=== PATIENT | male | born 2000 | race Caucasian/White ===

== ENCOUNTER 2019-03-04 15:07 | Inpatient (IN) | payer SELFPAY ==
[2019-03-04] MEDS ORDERED: Ketorolac Tromethamine 30 MG/ML VIAL ONE (15:36)
[2019-03-04] MEDS ORDERED: Acetaminophen 500 MG TAB ONE (15:36)
[2019-03-04] MEDS ORDERED: Clindamycin/D5W 900 mg/50 ml Premix Bag ONE (15:36)
[2019-03-04] MEDS ORDERED: Vancomycin HCl 1.5 GM in Sodium Chloride 0.9% 250 ML 300 ML IVPB ONE (15:45)
[2019-03-04 16:06] LABS: ALT (SGPT) 13 U/L (8-55); AST (SGOT) 20 U/L (5-34); Albumin 3.6 g/dL (3.5-5.0); Alkaline Phosphatase 78 U/L (40-110); Anion Gap 14 mmol/L (10-20); BUN (Urea Nitrogen) 13 mg/dL (8.9-20.6); Bilirubin, Total 0.4 mg/dL (0.2-1.2); CRP (Inflammatory) 17.86 mg/dL (= or < 0.5); Calc. Creatinine Clearance 0 mL/min (70-130); Calcium 9.2 mg/dL (7.8-10.44); Carbon Dioxide 23 mmol/L (22-29); Chloride 99 mmol/L (98-107); Estimated GFR-MDRD Greater than 90; Glucose 121 mg/dL (70-105); Potassium 4.1 mmol/L (3.5-5.1); Protein, Total 7.6 g/dL (6.0-8.3); Sodium 132 mmol/L (136-145)
[2019-03-04] MEDS ORDERED: Piperacillin/Tazobactam 4.5 GM VIAL ONE (16:09)
[2019-03-04] MEDS ORDERED: Sodium Chloride 0.9% 100 ML ONE (16:09)
--- NOTE | 2019-03-04 16:20 | ULT ---
EXAM: Right lower extremity venous ultrasound HISTORY: Right lower extremity pain for 4 days COMPARISON: None TECHNIQUE: Multiplanar grayscale and color Doppler images were obtained in a right lower extremity ve nous ultrasound. Spectral analysis of the Doppler waveforms were performed. FINDINGS: The common femoral vein, profunda femoral vein, superficial femoral vein, and popliteal vei n are normal in appearance without visible thrombus. These vessels demonstrate normal compression, flow, and augmentation. The posterior tibial vein and greater saphenous vein are patent without evidence of thrombus. There is a fluid collection in the soft tissues surrounding the knee. IMPRESSION: No evidence of DVT.
--- NOTE | 2019-03-04 17:20 | RAD ---
RIGHT TIBIA AND FIBULAR TWO VIEWS: 03/04/19 HISTORY: Erythema. FINDINGS: No fracture. No cortical irregularity. No periosteal reaction. No radiopaque foreign body. Mild soft tissue swelling at the level of the ankle. IMPRESSION: Mild soft tissue swelling at the level of the ankle. No fracture. No radiopaque foreign body. POS: [facility]
[2019-03-04 17:23] LABS: #Eosinphils 0.1 thou/uL (0.0-0.7); #Monocytes 1.4 thou/uL (0.11-0.59); #Neutrophils 6.8 thou/uL (1.40-6.50); %Basophils 0.1 % (0.0-1.0); %Eosinophils 1.2 % (0.0-10.0); %Lymphocytes 19.5 % (21.0-51.0); %Monocytes 13.6 % (0.0-10.0); %Neutrophils 65.5 % (42.0-75.0); Hemoglobin 13.2 g/dL (14.0-18.0); Mean Corpuscular HGB CONC 33.8 g/dL (32.0-36.0); Mean Corpuscular Hemoglobin 30.2 pg (27.0-31.0); Mean Corpuscular Volume 89.5 fL (78.0-98.0); Mean Platelet Volume 6.2 fL (7.4-10.4); Platelet Count 463 thou/uL (130-400); Red Blood Cell (RBC) Count 4.38 mill/uL (4.70-6.10); White Blood Cell (WBC) Count 10.3 thou/uL (4.8-10.8)
[2019-03-04] MEDS ORDERED: Morphine 4 MG/ML VIAL ONE (17:23)
--- NOTE | 2019-03-04 17:27 | RAD ---
RIGHT FEMUR TWO VIEWS: 03/04/19 HISTORY: Pain. Erythema. FINDINGS: No fracture. No cortical irregularity or periosteal reaction. In the proximal mid-thigh soft tissues, there is a hyperdense lesion which may represent a partially calcified focus in the soft tissues. This lesion measures approximately 0.5 cm. IMPRESSION: Possible soft tissue calcification. No fracture, cortical irregularity or periosteal reaction. POS: [facility]
[2019-03-04] MEDS ORDERED: HYDROcodone/Acetaminophen 5/325 mg Tablet PO PRN (18:03)
[2019-03-04] MEDS ORDERED: Senokot S 8.6-50 MG TAB PO PRN (18:03)
[2019-03-04] MEDS ORDERED: Acetaminophen 325 MG TAB PO PRN (18:03)
[2019-03-04 19:44] VITALS: BMI 26.6
[2019-03-04] MEDS: Sodium Chloride 0.9% 1,000 ML IV SCH (19:47)
[2019-03-04] MEDS: Famotidine 20 MG TAB PO SCH (19:48)
[2019-03-04] MEDS: HYDROcodone/Acetaminophen 5/325 mg Tablet PO PRN (19:49)
[2019-03-04] MEDS: Nicotine 14 MG PATCH TD SCH (19:50)
[2019-03-05] MEDS: Piperacillin/Tazobactam 4.5 GM in Sodium Chloride 0.9% 100 ML IVPB SCH ×4 (00:13→16:10)
--- NOTE | 2019-03-05 00:37 | HP ---
This is ISSA Dove dictating a report for Lane Fraser MD. CHIEF COMPLAINT: Redness to right lower leg. HISTORY OF PRESENT ILLNESS: Mr. Ventura is a 19-year-old male, who presented to the emergency room today, complaining of redness and pain to the right leg x4 days. Patient reports injecting methamphetamines in his arm and leg, but denies injecting it near the area of current redness. He denies any cough, congestion, sore throat, or diarrhea. Denies any history of hepatitis, HIV, or blood clot. Does report that he has had intermittent fevers for the last several days. Reports chills. Reports that his dad has had a blood clot and had to get his leg amputated. Patient denies sharing needles with any other people. Reports that his last injection was several days ago. Patient reports that pain is primarily behind his right knee and is somewhat tender there. Otherwise, he denies having a spot of redness that got bigger. He said he just woke up one morning several days ago and his leg was red and tender. In the emergency room, x-ray of femur, 2-views, were negative for any fracture. Right tibia and fibular, 2-views, mild soft tissue swelling at the level of the ankle. No fracture. No radiopaque foreign body. White blood cell count is 10.3. CRP 17.86. Sodium 132, glucose 121. CK is 38. Lactic acid 1.7. Patient also had a Doppler of the right leg, which was negative for any DVT. There is a fluid collection noted in the soft tissues surrounding the knee. Patient was given vanc, Zosyn, clindamycin, morphine, Toradol, Tylenol, and 2 L of fluid. The patient is denying any increased pain. Reports that his pain is well controlled at the moment. He will be admitted to medical floor for further management. REVIEW OF SYSTEMS: Patient reports chills, reports fever. Denies any chest pain, palpitations, shortness of breath, or cough. Denies any abdominal pain, nausea, vomiting, or diarrhea. Reports redness and pain, swelling to the right lower leg. All other systems are reviewed and are negative unless mentioned in the HPI. PHYSICAL EXAMINATION: VITAL SIGNS: Blood pressure 113/67, pulse is 98, respirations are 20, temperature is 97.9, and pO2 sats are 94% on room air. CONSTITUTIONAL: Patient appears nontoxic. He is alert and oriented to person, place, and time. He is in no apparent distress. HEENT: Head is atraumatic and normocephalic. Eyes, pupils are equal, round, and reactive to light. Extraocular muscles are intact. ENT; mouth exam is normal. Mucous membranes are moist. NECK: Normal range of motion. Trachea is midline. RESPIRATORY/CHEST: Breath sounds are clear. Chest movement is symmetrical. CARDIOVASCULAR: Patient is mildly tachycardic. Heart sounds are normal. ABDOMEN: Nontender. BACK: Normal inspection. Normal range of motion. No CVA tenderness. EXTREMITIES: Upper extremity, normal range of motion. Radial pulses are equal. Lower extremity, normal range of motion, normal strength. There is erythema and warmth to the skin overlying medial and anterior right calf. There is swelling and tenderness to right calf, tenderness to popliteal area. Range of motion is somewhat limited due to pain. NEUROLOGIC: Patient is oriented to person, place, and time. Speech is normal. There is no focal motor or sensory deficits. SKIN: Dry, warm, right lower leg cellulitic as described above. There are multiple puncture madison to right arm and leg noted. PSYCH: Patient is oriented to person, place, and time. Normal affect. PAST MEDICAL HISTORY: None. PAST SURGICAL HISTORY: Had a tonsillectomy. PSYCH HISTORY: ADHD, anxiety, and bipolar. SOCIAL HISTORY: Denies alcohol use, but currently uses methamphetamines, injects and also injects methamphetamines. Also, smokes about half a pack of cigarette a day. FAMILY HISTORY: Dad with a blood clot that required amputation. PLAN/ASSESSMENT: 1. Right lower leg cellulitis. We will continue the and vanc. We will ask pharmacy for assistance with dosing of the vancomycin. IV hydration with normal saline at 125 mL per hour. Area of cellulitis has been outlined in the ER. We will keep an eye on this. We will elevate limb. Recheck labs in the morning. 2. Deep venous thrombosis and gastrointestinal prophylaxis have been started. 3. Case discussed with Dr. Fraser, who agrees with the plan. 4. Hospital course depending on clinical findings. Job ID: [id number]
[2019-03-05] MEDS: Vancomycin HCl 1.5 GM in Sodium Chloride 0.9% 250 ML 300 ML IVPB SCH ×3 (01:44→17:35)
[2019-03-05] MEDS: Sodium Chloride 0.9% 1,000 ML IV SCH ×3 (05:39→18:34)
[2019-03-05 07:01] LABS: #Eosinphils 0.2 thou/uL (0.0-0.7); #Lymphocytes 2.1 thou/uL (1.20-3.40); #Monocytes 1.2 thou/uL (0.11-0.59); #Neutrophils 5.2 thou/uL (1.40-6.50); %Basophils 0.2 % (0.0-1.0); %Eosinophils 2.1 % (0.0-10.0); %Lymphocytes 24.4 % (21.0-51.0); %Monocytes 13.7 % (0.0-10.0); %Neutrophils 59.6 % (42.0-75.0); Hemoglobin 12.9 g/dL (14.0-18.0); Mean Corpuscular HGB CONC 33.8 g/dL (32.0-36.0); Mean Corpuscular Hemoglobin 30.6 pg (27.0-31.0); Mean Corpuscular Volume 90.6 fL (78.0-98.0); Mean Platelet Volume 6.1 fL (7.4-10.4); Platelet Count 430 thou/uL (130-400); RBC Distribution Width 11.1 % (11.5-14.5); White Blood Cell (WBC) Count 8.7 thou/uL (4.8-10.8)
[2019-03-05 07:18] LABS: Anion Gap 12 mmol/L (10-20); BUN (Urea Nitrogen) 13 mg/dL (8.9-20.6); Calc. Creatinine Clearance 198 mL/min (70-130); Calcium 8.5 mg/dL (7.8-10.44); Carbon Dioxide 21 mmol/L (22-29); Chloride 105 mmol/L (98-107); Estimated GFR-MDRD Greater than 90; Glucose 106 mg/dL (70-105); Sodium 134 mmol/L (136-145)
[2019-03-05] MEDS: Famotidine 20 MG TAB PO SCH ×2 (08:48→20:25)
[2019-03-05] MEDS: Enoxaparin Sodium 40 MG/0.4 ML SYRINGE SC SCH (08:49)
[2019-03-05] MEDS: HYDROcodone/Acetaminophen 5/325 mg Tablet PO PRN ×2 (08:57→16:10)
--- NOTE | 2019-03-05 12:27 | PDOC.HOSPP ---
- Subjective Encounter Date: 03/05/19 Encounter Time: 07:20 Subjective: Pt seen for [id number] re: cellulitis. Feels better. - Objective Vital Signs & Weight: Vital Signs (12 hours) Temp Pulse Resp BP Pulse Ox 03/05/19 11:56 98.1 F 95 20 126/80 97 03/05/19 11:50 98.1 F 95 20 126/80 97 03/05/19 08:00 98 03/05/19 07:25 98.1 F 85 18 123/79 98 03/05/19 04:00 97.8 F 94 18 109/68 98 Weight Weight 180 lb I&O: 03/04/19 03/05/19 03/06/19 06:59 06:59 06:59 Intake Total 2094 Balance 2094 Result Diagrams: 03/05/19 06:12 03/05/19 06:12 Additional Labs: Labs and MARs reviewed by me Hospitalist ROS - Review of Systems Cardiovascular: denies: chest pain, palpitations, orthopnea, paroxysmal noc. dyspnea, edema, light headedness Gastrointestinal: denies: nausea, vomiting, abdominal pain, diarrhea, constipation, melena, hematochezia Skin: reports: rash - Medication Medications: Active Medications Generic Name Dose Route Start Last Admin Trade Name Freq PRN Reason Stop Dose Admin Hydrocodone Bitart/Acetaminophen 1 tab 03/04/19 18:03 03/05/19 08:57 [place] 5/325 PO 1 tab Q4H PRN Administration Moderate Pain (4-6) Enoxaparin Sodium 40 mg 03/05/19 09:00 03/05/19 08:49 Lovenox SC Not Given 09 GAVIOTA Famotidine 20 mg 03/04/19 21:00 03/05/19 08:48 Pepcid PO 20 mg BID GAVIOTA Administration Sodium Chloride 1,000 mls @ 125 mls/hr 03/04/19 18:15 03/05/19 10:04 Normal Saline 0.9% IV Not Given .Q8H GAVIOTA Piperacillin Sod/Tazobactam 100 mls @ 200 mls/hr 03/04/19 23:59 03/05/19 11: 21 Sod 4.5 gm/ Sodium Chloride IVPB 100 mls Q6HR GAVIOTA Administration Vancomycin HCl 1.5 gm/ Sodium 300 mls @ 200 mls/hr 03/05/19 01:00 03/05/19 08 :51 Chloride IVPB 300 mls 0100,0900,1700 GAVIOTA Administration Nicotine 14 mg 03/04/19 20:00 03/04/19 19:50 Nicoderm Patch TD 14 mg Q24HR GAVIOTA Administration - Exam General Appearance: NAD Eye: anicteric sclera ENT: no oropharyngeal lesions Neck: supple, no JVD Heart: RRR Respiratory: CTAB Gastrointestinal: soft, non-tender Extremities: no edema Skin - other findings: RLE rash Musculoskeletal: no muscle wasting Psychiatric: normal affect, normal behavior
--- NOTE | 2019-03-05 12:30 | PDOC.HOSPP ---
- Subjective Encounter Date: 03/05/19 Encounter Time: 07:20 Subjective: Pt seen for followup re: cellulitis. feels better. No diarrhea. No nausea or vomiting. - Objective Vital Signs & Weight: Vital Signs (12 hours) Temp Pulse Resp BP Pulse Ox 03/05/19 11:56 98.1 F 95 20 126/80 97 03/05/19 11:50 98.1 F 95 20 126/80 97 03/05/19 08:00 98 03/05/19 07:25 98.1 F 85 18 123/79 98 03/05/19 04:00 97.8 F 94 18 109/68 98 Weight Weight 180 lb I&O: 03/04/19 03/05/19 03/06/19 06:59 06:59 06:59 Intake Total 2094 Balance 2094 Result Diagrams: 03/05/19 06:12 03/05/19 06:12 Additional Labs: Labs and MARs reviewed by nd Hospitalist ROS - Review of Systems Cardiovascular: denies: chest pain, palpitations, orthopnea, paroxysmal noc. dyspnea, edema, light headedness Gastrointestinal: denies: nausea, vomiting, abdominal pain, diarrhea, constipation, melena, hematochezia - Medication Medications: Active Medications Generic Name Dose Route Start Last Admin Trade Name Freq PRN Reason Stop Dose Admin Hydrocodone Bitart/Acetaminophen 1 tab 03/04/19 18:03 03/05/19 08:57 [place] 5/325 PO 1 tab Q4H PRN Administration Moderate Pain (4-6) Enoxaparin Sodium 40 mg 03/05/19 09:00 03/05/19 08:49 Lovenox SC Not Given 09 G[facility]OTA Famotidine 20 mg 03/04/19 21:00 03/05/19 08:48 Pepcid PO 20 mg BID G[facility]OTA Administration Sodium Chloride 1,000 mls @ 125 mls/hr 03/04/19 18:15 03/05/19 10:04 Normal Saline 0.9% IV Not Given .Q8H [facility] Piperacillin Sod/Tazobactam 100 mls @ 200 mls/hr 03/04/19 23:59 03/05/19 11: 21 Sod 4.5 gm/ Sodium Chloride IVPB 100 mls Q6HR G[facility] Administration Vancomycin HCl 1.5 gm/ Sodium 300 mls @ 200 mls/hr 03/05/19 01:00 03/05/19 08 :51 Chloride IVPB 300 mls 0100,0900,1700 G[facility] Administration Nicotine 14 mg 03/04/19 20:00 03/04/19 19:50 Nicoderm Patch TD 14 mg Q24HR G[facility]IOTA Administration - Exam General Appearance: NAD Eye: anicteric sclera ENT: moist mucosa Neck: supple, no JVD Heart: RRR, no rubs Respiratory: CTAB Gastrointestinal: soft, non-tender Extremities: no cyanosis Skin - other findings: right leg cellulitis improving Musculoskeletal: normal strength Psychiatric: normal affect, normal behavior Hosp A/P (1) Cellulitis Code(s): L03.90 - CELLULITIS, UNSPECIFIED Status: Acute (2) Hyponatremia Code(s): E87.1 - HYPO-OSMOLALITY AND HYPONATREMIA Status: Acute (3) Methamphetamine use Code(s): F15.10 - OTHER STIMULANT ABUSE, UNCOMPLICATED Status: Chronic - Plan continue antibiotics, out of bed/ambulate Continue IV Zosyn and vancomycin. Consult ID Stop methamphetamine use. Hyponatremia mild, likely asymptomatic.
--- NOTE | 2019-03-05 14:35 | CON ---
DATE OF CONSULTATION: 03/05/2019 REASON FOR CONSULTATION: Area of cellulitis, right leg in the setting of methamphetamine intravenous drug use. HISTORY OF PRESENT ILLNESS: A 19-year-old with history of methamphetamine drug use including intravenous, bipolar disorder, and chronic smoking, who lives in the area in an apartment and has been using methamphetamine in the vein, trying his arms and legs and developed redness below the knee area. The patient has limitation of range of motion of the right knee with pain and then he came to the emergency room and was admitted. No headaches, visual symptoms, sore throat, odynophagia, or dysphagia. No vomiting. No back pain. No dyspnea or chest pain. No abdominal pain or diarrhea. No genitourinary symptoms. No other joint symptoms. MEDICAL HISTORY: Methamphetamine drug use with intravenous drug use as well and chronic smoking. He lives in the area with family reportedly. FAMILY HISTORY: DVT. ALLERGIES: NONE. CURRENT MEDICATIONS: 1. Zosyn. 2. Vancomycin. 3. Enoxaparin. 4. Hydrocodone. 5. Pepcid. PHYSICAL EXAMINATION: VITAL SIGNS: T-max 98.1, blood pressure 120/80, pulse 95, respirations 20, and O2 saturation 97%. SKIN: There is faint area of erythema in the right calf region wrapping around right below the knee towards the distal 2/3 of the right leg. No areas of discoloration. No needle track madison noted. HEENT: No lymphadenopathy. Ocular movements conjugate. Pupils are equal. Nasal passage is patent. Ear exam normal. Oral cavity normal. NECK: Supple. No jugular vein distention or carotid bruits. No thyromegaly. LUNGS: Symmetric air entry. HEART: S1 and S2 without murmurs. No S3 or S4. ABDOMEN: Soft, not distended or tender. No ascites. No bladder distention. MUSCULOSKELETAL: The patient has limitation in range of motion of the right knee, the left is normal. I did not identify obvious right knee effusion in the exam. Pulses are 2+ in dorsalis pedis. Strength appears to be preserved with limitations imposed by the inflammatory process of right lower extremity. NEUROLOGIC: He avoids eye contact, a little bit fidgety. He seems to be oriented. Replies are short and mostly yes and no. LABORATORY DATA: White cell count 10.3 and 8.7, hemoglobin 13.2, platelets 463 and 430, 65% neutrophils, 19% lymphocytes. Creatinine 0.81. Liver profile normal. CRP 17.86, albumin 3.6. Two sets of blood cultures thus far no growth. Tibia-fibula x-ray, mild soft tissue swelling at the ankle. Vascular ultrasound with no evidence of deep vein thrombosis. There was a femur x-ray with possible calcification in soft tissue. ASSESSMENT: 1. Methamphetamine intravenous drug use reportedly with sterile needles, most recent one used four days before admission. 2. Inflammatory process, right lower extremity with the epicenter around the right knee and the calf region. It seems to have improved quite a bit since admission on broad-spectrum antimicrobial therapy. DISCUSSION: The differential diagnosis includes septic arthritis, infrapatellar bursitis, or cellulitis and the possibility of an abscess formation. We will continue antimicrobial therapy. Follow up clinical course. May need MRI of the leg and the knee to clarify the anatomic structures involved. Check hepatitis C and HIV serology as well as RPR and hepatitis B serology. Job ID: [id number]
[2019-03-05] MEDS ORDERED: traMADol HCl 50 MG TAB PO PRN ×2 (16:51)
[2019-03-05] MEDS ORDERED: Acetaminophen/Codeine 30-300mg Tablet PO PRN (16:51)
[2019-03-05] MEDS ORDERED: Ketorolac Tromethamine 30 MG/ML VIAL IVP PRN (16:52)
[2019-03-05] MEDS ORDERED: Ketorolac Tromethamine 30 MG/ML VIAL IVP SCH (17:00)
[2019-03-05 18:24] LABS: Syphilis Antibody Nonreactive (Nonreactive); Syphilis Antibody Index 0.05 S/CO (<1.00 Non-Reactive)
[2019-03-05 18:25] LABS: HIV (1/2) Antibody/Antigen Non-Reactive (NonReactive); HIV 1/2 INDEX 0.51 S/CO (<1.00); Hep C IgG Ab Non-Reactive (NonReactive); Hep C Index 0.07 S/CO (0-0.79)
[2019-03-05 18:28] LABS: HBSAB Concentration 14.22 mIU/mL; Hep B Surf AB Reactive (NonReactive)
[2019-03-05 19:29] LABS: HBSAg Index 0.12 S/CO (0-0.99); Hep B Surf Ag NonReactive S/CO (NonReactive)
[2019-03-05] MEDS: Nicotine 14 MG PATCH TD SCH (20:25)
[2019-03-06] MEDS: Piperacillin/Tazobactam 4.5 GM in Sodium Chloride 0.9% 100 ML IVPB SCH ×5 (00:04→23:38)
[2019-03-06] MEDS: Sodium Chloride 0.9% 1,000 ML IV SCH ×3 (00:05→18:36)
[2019-03-06] MEDS: Vancomycin HCl 1.5 GM in Sodium Chloride 0.9% 250 ML 300 ML IVPB SCH ×3 (01:07→17:47)
[2019-03-06 05:17] LABS: #Eosinphils 0.2 thou/uL (0.0-0.7); #Lymphocytes 2.2 thou/uL (1.20-3.40); #Monocytes 1.3 thou/uL (0.11-0.59); #Neutrophils 5.3 thou/uL (1.40-6.50); %Basophils 0.5 % (0.0-1.0); %Lymphocytes 24.3 % (21.0-51.0); %Monocytes 14.3 % (0.0-10.0); %Neutrophils 58.9 % (42.0-75.0); Hemoglobin 13.1 g/dL (14.0-18.0); Mean Corpuscular Hemoglobin 30.6 pg (27.0-31.0); Mean Corpuscular Volume 89.9 fL (78.0-98.0); Platelet Count 476 thou/uL (130-400); RBC Distribution Width 10.9 % (11.5-14.5); Red Blood Cell (RBC) Count 4.27 mill/uL (4.70-6.10)
[2019-03-06 05:43] LABS: Anion Gap 14 mmol/L (10-20); BUN (Urea Nitrogen) 8 mg/dL (8.9-20.6); Calc. Creatinine Clearance 190 mL/min (70-130); Calcium 8.8 mg/dL (7.8-10.44); Carbon Dioxide 20 mmol/L (22-29); Chloride 103 mmol/L (98-107); Estimated GFR-MDRD Greater than 90; Glucose 90 mg/dL (70-105); Potassium 4.2 mmol/L (3.5-5.1); Sodium 133 mmol/L (136-145)
[2019-03-06 05:51] LABS: Vancomycin, Trough 44.7 ug/mL
[2019-03-06 08:24] LABS: Vancomycin, Trough 21.5 ug/mL
[2019-03-06] MEDS: Enoxaparin Sodium 40 MG/0.4 ML SYRINGE SC SCH (08:43)
[2019-03-06] MEDS: Famotidine 20 MG TAB PO SCH ×2 (12:21→20:21)
[2019-03-06] MEDS: Acetaminophen/Codeine 30-300mg Tablet PO PRN ×2 (12:55→20:23)
--- NOTE | 2019-03-06 16:25 | PDOC.HOSPP ---
- Subjective Encounter Date: 03/06/19 Encounter Time: 12:00 Subjective: Pt seen for followup re: cellulitis. Denies any complaints. Feels better, wants to go home. - Objective Vital Signs & Weight: Vital Signs (12 hours) Temp Pulse Resp BP Pulse Ox 03/06/19 08:00 95 03/06/19 07:43 98.4 F 103 H 16 100/56 L 95 Weight Weight 180 lb I&O: 03/05/19 03/06/19 03/07/19 06:59 06:59 06:59 Intake Total 2094 Balance 2094 Result Diagrams: 03/06/19 04:55 03/06/19 04:55 Additional Labs: Labs and MARs reviewed by oh Hospitalist ROS - Review of Systems Constitutional: denies: fever, chills, sweats, weakness, malaise Cardiovascular: denies: chest pain, palpitations, orthopnea, paroxysmal noc. dyspnea, edema, light headedness Skin: reports: rash - Medication Medications: Active Medications Generic Name Dose Route Start Last Admin Trade Name Freq PRN Reason Stop Dose Admin Acetaminophen/Codeine Phosphate 2 tab 03/05/19 16:51 03/06/19 12:55 Tylenol #3 PO 2 tab Q6H PRN Administration MODERATE TO SEVERE Pain Enoxaparin Sodium 40 mg 03/05/19 09:00 03/06/19 08:43 Lovenox SC Not Given 0900 G[facility] Famotidine 20 mg 03/04/19 21:00 03/06/19 12:21 Pepcid PO Not Given BID [facility] Sodium Chloride 1,000 mls @ 125 mls/hr 03/04/19 18:15 03/06/19 12:57 Normal Saline 0.9% IV 1,000 mls .Q8H [facility] Administration Piperacillin Sod/Tazobactam 100 mls @ 200 mls/hr 03/04/19 23:59 03/06/19 15: 41 Sod 4.5 gm/ Sodium Chloride IVPB 100 mls Q6HR [facility] Administration Vancomycin HCl 1.5 gm/ Sodium 300 mls @ 200 mls/hr 03/05/19 01:00 03/06/19 09 :32 Chloride IVPB 300 mls 0100,0900,1700 G[facility] Administration Nicotine 14 mg 03/04/19 20:00 03/05/19 20:25 Nicoderm Patch TD Not Given Q24HR G[facility]OTA Tramadol HCl 100 mg 03/05/19 16:51 03/06/19 15:41 Ultram PO 100 mg Q6H PRN Administration SEVERE Pain (8-10) - Exam General Appearance: NAD Eye: anicteric sclera ENT: normocephalic atraumatic, moist mucosa Neck: supple, symmetric Heart: RRR, no rubs Respiratory: CTAB Gastrointestinal: soft, non-tender Extremities: no clubbing Skin - other findings: cellulitis improving; tattoos Musculoskeletal - other findings: Flexion at right knee up to 90 degrees only Psychiatric: normal affect, normal behavior Hosp A/P (1) Cellulitis Code(s): L03.90 - CELLULITIS, UNSPECIFIED Status: Acute (2) Hyponatremia Code(s): E87.1 - HYPO-OSMOLALITY AND HYPONATREMIA Status: Acute (3) Methamphetamine use Code(s): F15.10 - OTHER STIMULANT ABUSE, UNCOMPLICATED Status: Chronic - Plan plan discussed w/ family, continue antibiotics, out of bed/ambulate Continue IV Zosyn and vancomycin. Check MRI right knee and leg to rule out infection. Discussed with radiology, thry recommended MRI W and WO contrast. Pt counseled re: methamphetamine use. Hyponatremia mild.
[2019-03-06] MEDS: Nicotine 14 MG PATCH TD SCH (19:22)
[2019-03-07] MEDS: Vancomycin HCl 1.5 GM in Sodium Chloride 0.9% 250 ML 300 ML IVPB SCH ×2 (01:57→10:06)
[2019-03-07] MEDS: Piperacillin/Tazobactam 4.5 GM in Sodium Chloride 0.9% 100 ML IVPB SCH (05:41)
[2019-03-07] MEDS: Acetaminophen/Codeine 30-300mg Tablet PO PRN (09:05)
[2019-03-07] MEDS: Famotidine 20 MG TAB PO SCH (09:07)
[2019-03-07] MEDS: Enoxaparin Sodium 40 MG/0.4 ML SYRINGE SC SCH (09:07)
[2019-03-07 09:36] LABS: Vancomycin, Trough 16.1 ug/mL
[2019-03-07 12:59] VITALS: BP 112/73; TEMP 97.5
--- NOTE | 2019-03-07 17:25 | DIS ---
DATE OF ADMISSION: 03/04/2019 DATE OF DISCHARGE: 03/07/2019 DISCHARGE DISPOSITION: Home. PRIMARY DISCHARGE DIAGNOSES: 1. Right lower extremity cellulitis. 2. IV drug abuse with methamphetamine. 3. History of bipolar disorder. 4. Tobacco abuse. PROCEDURES DONE DURING HOSPITALIZATION: Right tib-fib, two view x-ray done showed soft-tissue swelling at the level of the ankle. No fracture. No radiopaque foreign body was seen. Right lower extremity venous ultrasound done showed no evidence of DVT. Right femur two-view x-ray done showed possible soft tissue calcification in the proximal mid thigh soft tissues. No fracture or cortical irregularity or periosteal reaction was seen. Blood cultures x2, no growth; had a white count of 10 with H and H of 13 and 39 on the day of admission with platelet count of 463 and 65% neutrophils. Discharge BUN and creatinine 8 and 0.7. CRP was 17.8. Albumin 3.6. Liver enzymes are within normal limits on the day of admission. Syphilis IgG/ IgM antibodies were nonreactive. Hepatitis B surface antigen nonreactive. Hep C antibody nonreactive. HIV 1 and 2 antigen and antibody nonreactive. INPATIENT CONSULT: Dr. Leach for Infectious Disease. DISCHARGE PLAN: The patient to follow up with primary care physician of his choice in 1 week DISCHARGE MEDICATIONS: Keflex 500 mg p.o. 4 times daily for 10 days, Motrin 400 mg three times daily p.r.n. for pain. ALLERGIES: NO KNOWN DRUG ALLERGIES. BRIEF COURSE DURING HOSPITALIZATION: The patient initially came in with complaints of right lower leg redness and swelling. He admitted to using IV methamphetamine in the area. He was essentially admitted for right lower leg cellulitis and was placed on broad-spectrum IV antibiotics due to IV drug abuse. He has had consultation with Dr. Leach as well. The patient has had multiple imaging studies, which has not revealed any signs of osteomyelitis or abscess. He remained hemodynamically stable all through his stay here. He is wanting to go home from last 24 hours. In view of this, he has been placed on Keflex 500 mg 4 times daily, to be continued for 10 days. He was counseled with regard to substance use and tobacco use. Please note, I have seen and examined the patient on the day of discharge. The patient does not have a primary care physician and I have strongly counseled him to find and see a primary care physician in 1 week for followups. Job ID: [id number] [email or web address]
--- NOTE | 2019-03-09 05:48 | PQF ---
DOREEN MONTGOMERY VINAYA KUMAR MD [id number] CLINICAL DOCUMENTATION CLARIFICATION FORM: POST DISCHARGE Addendum to original discharge summary date: ____ Late entry note date: __ DATE: 03-09-2019 ATTN:Dimple Lazaro Please exercise your independent, professional judgment in responding to the clarification form. Clinical indicators are provided on the bottom of this form for your review Can you please specify whether sepsis is ruled in or ruled out during this encounter? Please check appropriate box(s) to clarify if the following diagnosis has been ruled in or ruled out: Sepsis [ x ] Ruled in diagnosis [ ] Continue to treat [ x ] Resolved [ ] Ruled out diagnosis [ ] Cannot rule out diagnosis [ ] Other diagnosis please specify: [ ] Unable to determine CLINICAL INDICATORS: Vital signs 03/04-BP 90/52 ED provider p3 03/04-Tachycardic in the 130s H&P p1 03/04-Redness to RLE H&P p1 03/04-Does report that he has had intermittent fevers for the last several days RISK FACTORS: ED provider p3 03/04-Sepsis ED provider p3 03/04-RLE Cellulitis ED provider p3 03/04-IV drug abuse TREATMENTS: ED provider p3 03/04-2L NS fluid bolus given H&P p1 03/04-Vanc, Zosyn, Clindamycin H&P p2 03/04-Recheck labs in the morning (This form is maintained as a part of the permanent medical record) 2014 [employer] All Rights Reserved Yancy [email or web address] [not provided] MTDD
== END 2019-03-07 12:57 | disposition home or self-care (01) | DRG 872 ==
LOC: ERS 15:07 → T4-A 17:25
PROVIDERS: ADMIT Internal Medicine; ATTEND Internal Medicine
PROC: 3E0234Z Introduction of Serum, Toxoid and Vaccine into Muscle, Percutaneous Approach (ICD-10-PCS; principal; 2019-03-05)
DX: A41.9 Sepsis, unspecified organism (principal); L03.115 Cellulitis of right lower limb; E87.1 Hypo-osmolality and hyponatremia; F90.9 Attention-deficit hyperactivity disorder, unspecified type; F41.9 Anxiety disorder, unspecified; F17.210 Nicotine dependence, cigarettes, uncomplicated; F31.9 Bipolar disorder, unspecified; F15.10 Other stimulant abuse, uncomplicated; Z23 Encounter for immunization
CPT/HCPCS: 36415; 80048; 80053; 80202; 82550; 83605; 85025; 86140; 86706; 86780; 86803; 87040; 87340; 87389; 96365; 96367; 96368; 96375; J1650; J1885; J2270; J2543; J3370; J3490; J7050

== ENCOUNTER 2020-04-04 15:14 | Emergency (ER) | payer OTHER, SELFPAY ==
[2020-04-04] MEDS ORDERED: Ondansetron ODT 4 MG TAB ONE (15:37)
[2020-04-05 10:35] LABS: SARS-CoV-2 MS2 Positive; SARS-CoV-2 N Gene Negative; SARS-CoV-2 S Gene Negative; SARS-CoV-2 by NAA Not Detected (NotDetected); SARS-CoV-2 orf1ab Negative
== END 2020-04-04 16:30 | disposition home or self-care (01) ==
LOC: ERS 15:14
DX: R11.2 Nausea with vomiting, unspecified (principal); R19.7 Diarrhea, unspecified; F90.2 Attention-deficit hyperactivity disorder, combined type; F41.9 Anxiety disorder, unspecified; F31.9 Bipolar disorder, unspecified; F17.210 Nicotine dependence, cigarettes, uncomplicated
CPT/HCPCS: 87635; 87804; 99284; Q0162; U0003

== ENCOUNTER 2020-08-07 20:31 | Emergency (ER) | payer SELFPAY ==
--- NOTE | 2020-08-07 21:17 | RAD ---
RIGHT WRIST THREE VIEWS: History: Right wrist pain. FINDINGS: No fracture, dislocation, or bony destruction is seen. If symptoms do not improve, follow up exam should be obtained in 7 days. IMPRESSION: As above. POS: [facility]
== END 2020-08-07 23:20 | disposition home or self-care (01) ==
LOC: ERS 20:31
DX: M25.531 Pain in right wrist (principal); F17.210 Nicotine dependence, cigarettes, uncomplicated; X50.3XXA Overexertion from repetitive movements, initial encounter